=== PATIENT | female | born 1990 | race Caucasian/White ===

== ENCOUNTER 2021-07-22 23:28 | Emergency (ER) | payer BC ==
[2021-07-23 00:21] LABS: HEMOGLOBIN 13.2 gm/dl (12.3-15.3); RED BLOOD COUNT 4.49 M/UL (4.00-5.10)
[2021-07-23 01:37] LABS: BUN/CREATININE RATIO 12 (0-10)
[2021-07-23] MEDS ORDERED: CEPHALEXIN500 MG PO (02:29)
== END 2021-07-23 02:35 | disposition home or self-care (01) ==
LOC: ER1 23:28
PROVIDERS: Physician Assistant
DX: U07.1 COVID-19 (principal); N30.90 Cystitis, unspecified without hematuria; I10 Essential (primary) hypertension; Z88.8 Allergy status to other drugs, medicaments and biological substances
CPT/HCPCS: 71045; 80053; 81001; 82550; 82553; 83874; 83880; 84439; 84443; 84484; 84703; 85025; 85379; 85610; 85730; 87081; 87880; 93005; 99284